=== PATIENT | female | born 1980 | race Caucasian/White ===

== ENCOUNTER 2016-07-01 11:44 | Emergency (ER) | payer OTHER ==
[~2016-07-01] VITALS: Ht 172.7 cm; Wt 77.3 kg
[~2016-07-01 11:44] MED LIST: AMB5 PO; CHOL400T41 PO; MET10 PO; OXYC-176 PO; TIZA4TABA PO; VAL5 PO; [UNRECOGNIZED DRUG - CODE] PO
[2016-07-01 11:48] VITALS: BP 133/90; PULSE 90; RESP 16; O2SAT 100
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
--- NOTE | 2016-07-01 12:41 | DRSVH ---
PROCEDURE: X-RAY RIGHT HAND, MINIMUM THREE VIEWS ([id number]) INDICATIONS: trauma TECHNIQUE: 3 views of the hand(s) acquired. COMPARISON: None. FINDINGS: Bones: No displaced fractures or dislocations. Carpal bones are normally aligned. No suspicious ezequiel ny lesions. Soft tissues: No suspicious soft tissue calcifications. IMPRESSION: 1. No displaced fracture or dislocation. Dictated by: Mario Chanel M.D. on 07/01/2016 at 12:39 Approved by: Mario Chanel M.D. on 07/01/2016 at 12:39
== END 2016-07-01 12:51 | disposition home or self-care (01) ==
LOC: SED 11:44
DX: S60.221A Contusion of right hand, initial encounter (principal); X83.8XXA Intentional self-harm by other specified means, initial encounter; Y92.9 Unspecified place or not applicable; Y93.89 Activity, other specified; Y99.8 Other external cause status; R20.2 Paresthesia of skin; F17.200 Nicotine dependence, unspecified, uncomplicated; Z87.820 Personal history of traumatic brain injury; Z86.69 Personal history of other diseases of the nervous system and sense organs; Z88.8 Allergy status to other drugs, medicaments and biological substances

== ENCOUNTER 2016-11-02 13:45 | Emergency (ER) | payer OTHER ==
[~2016-11-02] VITALS: Ht 172.7 cm; Wt 86.3 kg
[2016-11-02 13:49] VITALS: BP 132/85; PULSE 88; RESP 19; O2SAT 100
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
[2016-11-02] MEDS ORDERED: oxyCODONE-Acetamin 5-325 mg Tablet PO ONE (14:20)
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
[2016-11-02 16:03] VITALS: BP 113/74; PULSE 68; RESP 15; O2SAT 98
== END 2016-11-02 15:47 | disposition home or self-care (01) ==
LOC: SED 13:45
DX: S60.222A Contusion of left hand, initial encounter (principal); V47.5XXA Car driver injured in collision with fixed or stationary object in traffic accident, initial encounter; Y93.89 Activity, other specified; Y92.410 Unspecified street and highway as the place of occurrence of the external cause; Y99.8 Other external cause status; F32.9 Major depressive disorder, single episode, unspecified; F17.200 Nicotine dependence, unspecified, uncomplicated; Z87.820 Personal history of traumatic brain injury; Z98.890 Other specified postprocedural states; Z88.8 Allergy status to other drugs, medicaments and biological substances

== ENCOUNTER 2016-11-08 18:05 | Emergency (ER) | payer OTHER ==
[~2016-11-08] VITALS: Ht 172.7 cm; Wt 84.1 kg
[2016-11-08 18:14] VITALS: BP 135/79; PULSE 71; RESP 16; O2SAT 97
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
[2016-11-08] MEDS ORDERED: oxyCODONE-Acetamin 10-325 mg Tablet PO ONE (18:50)
[2016-11-08 20:03] VITALS: BP 117/78; PULSE 91; RESP 18; O2SAT 97
--- NOTE | 2016-11-09 09:18 | DRSVH ---
PROCEDURE: US VENOUS ARM DUPLEX UNILATERAL, LEFT INDICATIONS: bruising and swelling ? clot TECHNIQUE: Real-time imaging, as well as color and pulse Doppler interrogation, was performed of the left upper extremity deep veins from the inferior neck to the antecubital fossa. COMPARISON: None. FINDINGS: The internal jugular vein, visualized portions of the subclavian vein, axillary, and brach ial veins are free of intraluminal thrombus. Where physically possible, the veins are normally compr essible. Color and pulse Doppler demonstrate normal intraluminal flow, with expected phasicity and p ulsatility. Additional scanning of the cephalic and basilic veins of the superficial system demonstr ate normal compressibility, without thrombus. IMPRESSION: No left upper extremity venous thrombosis identified. Dictated by: Raimundo GORE Interpreted: Anny John MD on 11/09/2016 at 9:17 Transcribed by: EL on 11/09/2016 at 9:17 Approved by: Anny John M.D. on 11/09/2016 at 16:03
== END 2016-11-08 20:04 | disposition home or self-care (01) ==
LOC: SED 18:05
DX: S60.222D Contusion of left hand, subsequent encounter (principal); S50.12XD Contusion of left forearm, subsequent encounter; W22.8XXD Striking against or struck by other objects, subsequent encounter; Y93.89 Activity, other specified; Y92.89 Other specified places as the place of occurrence of the external cause; Y99.8 Other external cause status; F32.9 Major depressive disorder, single episode, unspecified; F17.200 Nicotine dependence, unspecified, uncomplicated; Z87.820 Personal history of traumatic brain injury; Z98.890 Other specified postprocedural states; Z88.8 Allergy status to other drugs, medicaments and biological substances; Z91.040 Latex allergy status